=== PATIENT | female | born 1965 | race Caucasian/White ===

== ENCOUNTER 2018-11-24 07:30 | Inpatient (IN) | payer BC ==
[~2018-11-24 07:30] MED LIST: Bupivacaine 0.5%/EPINEPHrine 1:200,000 50 ML MDV ONE; Meropenem 500 MG SDV ONE
[2018-11-24] MEDS ORDERED: Acetaminophen 500 MG Tab PO ONE (08:40)
[2018-11-24] MEDS ORDERED: Scopolamine 1.5 MG Transdermal Patch TOP SCH (08:45)
[2018-11-24] MEDS ORDERED: Dextrose 5%-Lactated Ringers 1,000 ML IV SCH (09:00)
[2018-11-24] MEDS ORDERED: cefOXitin 2 GM in Sodium Chloride 0.9% 50 ML IV ONE (09:30)
[2018-11-24] MEDS ORDERED: Lidocaine 1% PF 2 ML SDV ONE (09:37)
[2018-11-24] MEDS ORDERED: Neostigmine Methylsulfate 1 MG/ML 5 ML Syringe ONE (09:38)
[2018-11-24] MEDS ORDERED: Ondansetron 4 MG/2 ML SDV ONE ×2 (09:38→17:10)
[2018-11-24] MEDS ORDERED: Glycopyrrolate 0.2 MG/ML 5 ML MDV ONE (09:38)
[2018-11-24] MEDS ORDERED: Succinylcholine 200 MG/10 ML MDV ONE (09:38)
[2018-11-24] MEDS ORDERED: Propofol 200 MG/20 ML SDV ONE (09:38)
[2018-11-24] MEDS ORDERED: Dexamethasone 4 MG/ML SDV ONE (09:38)
[2018-11-24] MEDS ORDERED: Rocuronium 50 MG/5 ML Vial ONE ×2 (09:38→12:43)
[2018-11-24] MEDS ORDERED: Ropivacaine 47 ML, Dexamethasone 8 MG, EPINEPHrine 0.4 MG, Sodium Chloride 0.9% 30.6 ML NERVRT SCH ×4 (10:15)
[2018-11-24] MEDS ORDERED: Lactated Ringers 1,000 ML ONE ×2 (13:10→15:29)
[2018-11-24] MEDS ORDERED: fentaNYL 250 MCG/5 ML SDV ONE ×2 (13:40→14:51)
[2018-11-24] MEDS ORDERED: Labetalol 20 MG/4 ML Syringe ONE (13:50)
[2018-11-24] MEDS ORDERED: Meropenem 500 MG SDV ONE ×2 (14:47→15:14)
[2018-11-24] MEDS ORDERED: Sodium Chloride 0.9% 10 ML ONE (15:14)
[2018-11-24] MEDS ORDERED: Mupirocin Oint 22 GM Tube ONE (15:37)
[2018-11-24] MEDS ORDERED: Metoclopramide 10 MG/2 ML SDV IVPUSH PRN (16:57)
[2018-11-24] MEDS ORDERED: Labetalol 20 MG/4 ML Syringe IVPUSH PRN (16:57)
[2018-11-24] MEDS ORDERED: hydrOXYzine HCl 100 MG/2 ML SDV IM PRN (16:57)
[2018-11-24] MEDS ORDERED: Naloxone 0.4 MG/ML SDV IV PRN (16:57)
[2018-11-24] MEDS ORDERED: diphenhydrAMINE 50 MG/ML SDV IVPUSH PRN (16:57)
[2018-11-24] MEDS: Ondansetron 4 MG/2 ML SDV IVPUSH PRN (17:15)
[2018-11-24] MEDS: HYDROmorphone/Normal Saline 15 MG/30 ML PCA IV PRN (17:50)
[2018-11-24] MEDS ORDERED: MVI, Adult with Vitamin K 10 ML, Thiamine 200 MG, Chromium/Copper/Mang/Selen/Zn 1 ML in... IV SCH ×4 (18:00)
[2018-11-24] MEDS: cefOXitin 2 GM in Sodium Chloride 0.9% 50 ML IV SCH (19:51)
[2018-11-24] MEDS: Pantoprazole 40 MG Vial IVPUSH SCH (20:28)
[2018-11-24] MEDS: Metoprolol Tartrate 25 MG Tab PO SCH (20:28)
[2018-11-24] MEDS: Acetaminophen Soln 650 MG/20.3 ML UD Cup PO SCH (21:26)
[2018-11-24] MEDS: Dextrose 5%-Lactated Ringers 1,000 ML IV SCH (23:11)
[2018-11-25] MEDS: cefOXitin 2 GM in Sodium Chloride 0.9% 50 ML IV SCH ×4 (01:54→19:32)
[2018-11-25] MEDS: Acetaminophen Soln 650 MG/20.3 ML UD Cup PO SCH ×4 (03:55→21:20)
[2018-11-25] MEDS ORDERED: Iohexol 647 MG/ML 50 ML SDV IVPUSH PRN (04:43)
[2018-11-25] MEDS: Dextrose 5%-Lactated Ringers 1,000 ML IV SCH (05:27)
[2018-11-25] MEDS ORDERED: Levothyroxine 100 MCG, Levothyroxine 50 MCG, Levothyroxine 25 MCG PO SCH ×3 (07:30)
[2018-11-25] MEDS: Levothyroxine 100 MCG Tab PO SCH (08:04)
[2018-11-25] MEDS: Mupirocin Oint 22 GM Tube TOP SCH ×2 (08:05→21:20)
[2018-11-25] MEDS: Metoprolol Tartrate 25 MG Tab PO SCH ×2 (08:06→21:20)
[2018-11-25] MEDS: SCOPOLAMINE PATCH CHECK TOP SCH (08:07)
[2018-11-25] MEDS: Sodium Ferric Gluconate Cmplex 250 MG in Sodium Chloride 0.9% 100 ML IV SCH (10:14)
[2018-11-25] MEDS: MVI, Adult with Vitamin K 10 ML, Thiamine 200 MG, Chromium/Copper/Mang/Selen/Zn 1 ML in... IV SCH ×4 (15:23)
[2018-11-25] MEDS: Pantoprazole 40 MG Vial IVPUSH SCH (19:33)
[2018-11-26] MEDS: cefOXitin 2 GM in Sodium Chloride 0.9% 50 ML IV SCH (01:34)
[2018-11-26] MEDS: Dextrose 5%-Lactated Ringers 1,000 ML IV SCH (01:34)
[2018-11-26] MEDS: Acetaminophen Soln 650 MG/20.3 ML UD Cup PO SCH ×4 (03:36→22:26)
[2018-11-26] MEDS ORDERED: Cyclobenzaprine 10 MG Tab PO PRN (07:22)
[2018-11-26] MEDS: Levothyroxine 100 MCG Tab PO SCH (07:24)
[2018-11-26] MEDS ORDERED: Cyanocobalamin (Vitamin B12) 1,000 MCG/ML SDV IM ONE (09:00)
[2018-11-26] MEDS: Mupirocin Oint 22 GM Tube TOP SCH ×2 (09:29→20:00)
[2018-11-26] MEDS: SCOPOLAMINE PATCH CHECK TOP SCH (09:30)
[2018-11-26] MEDS: Metoprolol Tartrate 25 MG Tab PO SCH ×2 (09:30→20:00)
[2018-11-26] MEDS: Docusate Sodium 100 MG Cap PO SCH ×2 (09:32→20:00)
[2018-11-26] MEDS: Bisacodyl 5 MG Tab PO SCH ×2 (09:32→20:00)
[2018-11-26] MEDS: Sodium Ferric Gluconate Cmplex 250 MG in Sodium Chloride 0.9% 100 ML IV SCH (11:12)
[2018-11-26] MEDS: Ondansetron 4 MG/2 ML SDV IVPUSH PRN (12:43)
[2018-11-26] MEDS: MVI, Adult with Vitamin K 10 ML, Thiamine 200 MG, Chromium/Copper/Mang/Selen/Zn 1 ML in... IV SCH ×4 (15:10)
[2018-11-26] MEDS: Pantoprazole 40 MG Delayed-Release Granules 1 Packet PO SCH (19:47)
[2018-11-27] MEDS: HYDROmorphone/Normal Saline 15 MG/30 ML PCA IV PRN (01:49)
[2018-11-27] MEDS: Dextrose 5%-Lactated Ringers 1,000 ML IV SCH ×2 (01:53→21:13)
[2018-11-27] MEDS: Acetaminophen Soln 650 MG/20.3 ML UD Cup PO SCH (03:49)
[2018-11-27] MEDS: Levothyroxine 100 MCG Tab PO SCH (07:43)
[2018-11-27] MEDS ORDERED: Ondansetron 4 MG Tab.DIS PO PRN (08:09)
[2018-11-27] MEDS: Docusate Sodium 100 MG Cap PO SCH ×3 (08:26→21:03)
[2018-11-27] MEDS: Mupirocin Oint 22 GM Tube TOP SCH ×2 (08:26→21:03)
[2018-11-27] MEDS: Bisacodyl 5 MG Tab PO SCH ×2 (08:27→21:03)
[2018-11-27] MEDS: Metoprolol Tartrate 25 MG Tab PO SCH ×2 (08:27→21:03)
[2018-11-27] MEDS: Acetaminophen/oxyCODONE 325-5 MG Tab PO PRN ×3 (08:34→19:56)
--- NOTE | 2018-11-27 08:48 | PN ---
DATE OF SERVICE: 11/27/2018 SUBJECTIVE: Raeann is postoperative day 3. She reports her pain is controlled using the CRATE OPENER. She has been up ambulating. She is currently on 3 L of O2. If the O2 is removed, her oxygen will decrease into the low 80s. With 3 L of O2 on, she maintains oximetry saturations by pulse oximetry 89% to 91%. She did have one 94. Significantly decreases with ambulation. Received her last iron infusion yesterday for a low ferritin. Afebrile. Oral intake 1020, urine output is 1300, QUOC 1-4 put out 60, 65, 90 and 80. Oral intake recorded was 550. Oral intake, otherwise, breakfast 40% and dinner 25, lunch was not recorded, has had 2 bowel movements. REVIEW OF SYSTEMS: Remainder of review of systems negative for any pertinent positives and negatives. OBJECTIVE: GENERAL: Raeann Villavicencio is a 53-year-old female. Color pale. She is alert and orientated. VITAL SIGNS: TPR 98.4, 67, 16, blood pressure is 115/67, O2 saturations by pulse oximetry 92% on 3.5 L of O2 per nasal cannula. HEENT: Negative. NECK: Supple. HEART: Regular rate and rhythm. LUNGS: Clear. ABDOMEN: Two QUOC drains are intact, draining a dark red drainage, stapled incision dry, intact. There is no fluid collection above or below the incision. ASSESSMENT: 1. Exploratory laparotomy with lysis of adhesions. a. Small-bowel resection. b. Second degree small bowel anastomosis to re-establish Kiley-en-Y anatomy. c. Separate small bowel stricturoplasty. d. Placement of Interceed mesh. e. Repair of incarcerated incisional hernia. f. Panniculectomy for recurrent incarcerated incisional hernia, extensive adhesions to small bowel with interfusion with inflammatory effusion to abdominal wall, lateral to the jejunostomy, separate small-bowel obstruction and chronic panniculitis. Date of surgery, 11/24/2018. PLAN: 1. Evaluate for home O2. 2. Discontinue CRATE OPENER. 3. Percocet 5/325 mg per protocol one every 4 hours for pain score 4 to 6, give two tablets for pain score greater than 7. Discontinue Tylenol. Teach the patient how to drip drain measure and record QUOC drains each separately. 4. We will evaluate p.r.n. or in a.m. Continue good pulmonary toilet. 5. We will plan discharge in a.m. Mary Contreras PA-C /[id number]
[2018-11-27] MEDS: MVI, Adult with Vitamin K 10 ML, Thiamine 200 MG, Chromium/Copper/Mang/Selen/Zn 1 ML in... IV SCH ×8 (11:20→15:01)
--- NOTE | 2018-11-27 11:48 | OR ---
CORRECTED REPORT DATE OF PROCEDURE: 11/24/2018 PREOPERATIVE DIAGNOSES: 1. Chronic panniculitis. 2. Recurrent incarcerated incisional hernia. POSTOPERATIVE DIAGNOSES: 1. Chronic panniculitis. 2. Recurrent incarcerated incisional hernia. 3. 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 4. Separate small bowel stricture. OPERATIVE PROCEDURE: Exploratory laparotomy with lysis of adhesions and: 1. Small bowel resection (05486). 2. Secondary small bowel anastomosis to reestablish Kiley-en-Y small bowel anatomy (90950). 3. Separate small bowel stricturoplasty (48152). 4. Placement of Interceed mesh (61887). 5. Repair of incarcerated recurrent incisional hernia (91633). 6. Panniculectomy (29166). ANESTHESIA: General. PHOTO MACHINE OPERATOR: TONY Vallecillo. INDICATIONS FOR PROCEDURE: This is a 53-year-old presenting with a large abdominal pannus, status post previous Kiley-en-Y gastric bypass and chronic panniculitis associated with that. She also has recurrent and not entirely reducible incisional hernia located in the central abdomen. Plan is to proceed with repair of that hernia most likely with mesh and concurrent panniculectomy. Potential risks of the procedure including bleeding, infection, injury to underlying viscera, possible need for bowel resection depending on operative findings, as well as the possibility of hernia recurring and the mesh if placed potentially becoming infected were all reviewed with the patient, and she wishes to proceed. DETAILS OF PROCEDURE: The patient was taken to the operating room, and after general endotracheal anesthesia was induced, a Alvarez catheter was inserted and the abdomen was prepped and draped. A broad transversely oriented elliptical incision across the lower abdomen was then marked out and initiated with the initial incision carried only just below the dermis. The lower end of the elliptical incision was then divided with Sonicision device. This was carried down to the level of the fascia for its length. The upper aspect was then similarly divided up to the point overlying the hernia sac, which extended just below the umbilicus, centered in the midline. Once this was done on each side, the hernia sac was opened and eventually excised more or less flush with the fascia. There were extensive adhesions of small bowel into the sac, which were taken down sequentially with a combination of blunt and sharp dissection, aided by electrocautery. A section of the small bowel which had mounted to the area of the jejunojejunostomy was essentially densely fused to a portion of the abdominal wall scar and the portion of that was excised along with the underlying area of the jejunojejunostomy. Once that area was mapped out, the decision was made to proceed with resection of the jejunojejunostomy as this was extremely densely scarred and did not appear to be reasonable to leave in place. At this point, 3 components of the jejunojejunostomy were then divided with NICO staplers as was the underlying mesentery and the specimen delivered from the field was consisted of jejunojejunostomy and some of the adherent overlying abdominal wall scar. The area of dissection was then inspected. GI tract continuity was initially started with an anastomosis to what had been the end of the biliopancreatic limb to the proximal end of the common limb with a [id number] enteroenterostomy with an internal firing of the Endo- NICO 60 mm stapler. The common opening was then closed transversely with purple loads and the angles anastomosed and mesenteric defect approximated with some 0 Ethibond stitch. Kiley- en-Y anatomy was then reconstructed with a [id number] enteroenterostomy between what had been the end of the Kiley limb to the bowel roughly at 15 cm distal to the initial small bowel anastomosis. This was accomplished with an internal firing of the Endo-NICO 60 mm stapler followed by a 30 mm internal firing, the angles anastomosed and mesenteric defect likewise closed with purple loads, and the angles anastomosed and mesenteric defect approximated with some 3-0 Vicryl stitch. At the end of this case, the mesenteric defect was closed with a 2-0 silk stitch to make that defect more permanently secured. The Kiley limb at this point was measured out at around 80 cm and the common limb was measured out at 330 cm, thus giving the patient adequate elementary length at this point. The limb lengths in terms of the Kiley limb and common limb were not significantly changed during the procedure as outlined above. The patient was noted within the biliopancreatic limb to have an area of stricturing related to some previous scar formation. This bowel was flipped over on itself and an enterotomy made and stricturoplasty accomplished with an internal firing of the NICO 60 mm stapler, then the common opening closed with NICO stapler as well. The angles were anastomosed and were reinforced with some 3-0 Vicryl stitch. In this case, there was no mesenteric defect to close. At this point, the area of herniation was then inspected and it was felt that with the extent of the bowel dissection and anastomosis required, a mesh placement would be quite high risk for developing a mesh infection, and given this, we decided to repair this hernia without permanent mesh. The closure of the hernia was done with a transverse orientation with a running #2 Vicryl stitch. Some omentum was tacked down underneath the incision of the anastomosis where it had been reinforced with some fibrin sealant as well. There was still some small bowel that would be up against the abdominal and pelvic fallon, so intercede mesh was placed over those surfaces to displace the small bowel and current adhesion for motion. The abdomen was irrigated with some meropenem-containing saline solution prior to closure. Upon completion of the fascial closure, the patient had 4 Michael-Chase drains placed superior to the main incision, 2 placed on each side, and the panniculectomy closure was then accomplished with 3-0 and 4-0 Vicryl stitch deep and then yared for the skin. Drains were affixed with some 4-0 Vicryl. After initial panniculectomy and excision, bilateral transversus abdominis plane blocks had also been placed, and the patient was taken to the recovery room in satisfactory condition. There were no evident complications. Nghia Chau MD /[id number]
--- NOTE | 2018-11-27 12:33 | CRLCR ---
INDICATION: Evaluate Kiley-en-Y gastric bypass. COMPARISON: None available. FINDINGS: 50 cc of Omnipaque 300 was swallowed. AP supine films of the abdomen are obtained immediately after swelling and with a 15 minutes delay. A total of 4 Michael-Chase drains are seen in the upper pelvis, 2 on the left and 2 on the right. A transverse line of surgical skin yared are seen over the mid pelvis. There is prompt passage of contrast in and out of the small gastric pouch and into the nondilated proximal small bowel. There is prompt passage of the contrast into the mid and distal small bowel at 15 minutes. There is no sign of extravasation of contrast. In the abdomen, there is no sign of distention of the small bowel or colon to suggest obstruction or ileus. There is no sign of free air or distinct mass. The osseous structures are normal in appearance for the patient`s age. The lung bases are clear. IMPRESSION: Prompt passage of swallowed oral contrast into and out of the small gastric pouch. Prompt passage of contrast through the nondilated proximal small bowel. No sign of any extravasation of contrast. Dictated by Faustino Chery MD @ Nov 27 2018 12:29PM Signed by Dr. Faustino Chery @ Nov 27 2018 12:31PM
--- NOTE | 2018-11-27 14:40 | PN ---
DATE OF SERVICE: 11/26/2018 The patient has been afebrile with stable vital signs. Her respiratory status appears to be improving somewhat. She is having some muscle spasm when coughing and as such, we will have her some Flexeril on a p.r.n. basis. I will give her some bowel stimulation, continue the YEAST DISTILLER today. She will be receiving a 2nd iron infusion as she did not have any problems with the iron infusion yesterday. Nghia Chau MD /[id number]
[2018-11-27] MEDS: Pantoprazole 40 MG Delayed-Release Granules 1 Packet PO SCH (19:49)
[2018-11-28] MEDS: Acetaminophen/oxyCODONE 325-5 MG Tab PO PRN ×3 (00:13→09:41)
[2018-11-28] MEDS: Levothyroxine 100 MCG Tab PO SCH (08:18)
[2018-11-28] MEDS: Metoprolol Tartrate 25 MG Tab PO SCH (08:35)
[2018-11-28] MEDS: Bisacodyl 5 MG Tab PO SCH (08:41)
[2018-11-28] MEDS: Docusate Sodium 100 MG Cap PO SCH (08:41)
[2018-11-28 08:45] VITALS: BP 123/79
[2018-11-28] MEDS: Mupirocin Oint 22 GM Tube TOP SCH (09:44)
--- NOTE | 2018-11-28 10:33 | PN ---
DATE OF SERVICE: 11/25/2018 The patient is afebrile with stable vital signs. Kept in ICU yesterday, as she was quite slow to wake up and was required initially 10 L of oxygen by rebreather to maintain adequate oxygenation. She is on nasal cannula this morning and appears to be doing well with O2 saturations in low 90s. She does state that, with her previous operations, she generally has problems with some low oxygen issues initially, and she will be needing to move around quite a bit, as well as work with pulmonary toilet. Otherwise, her upper GI x-ray looks good and will begin a step-2 diet today. We will back down on the IV rate, and the Alvarez catheter will come out. Her TSH was somewhat elevated at 7.5 and, given this, will bump her thyroid dose from 175 mcg to 200 mcg of Synthroid daily, and she will be transferred to second floor today. Nghia Chau MD /[id number]
== END 2018-11-28 09:45 | disposition home or self-care (01) | DRG 223 ==
LOC: EDSTATUS 07:30 → JP.SDS 08:01 → JP.SDSSCHI 08:01 → JP.ICU 17:25 → JP.MS 11-25 13:43
PROVIDERS: ADMIT Surgery; ATTEND Surgery
PROC: 0WQF0ZZ Repair Abdominal Wall, Open Approach (ICD-10-PCS; principal; 2018-11-24)
PROC: 0DBA0ZZ Excision of Jejunum, Open Approach (ICD-10-PCS; 2018-11-24)
PROC: 0DN80ZZ Release Small Intestine, Open Approach (ICD-10-PCS; 2018-11-24)
PROC: 0HB7XZZ Excision of Abdomen Skin, External Approach (ICD-10-PCS; 2018-11-24)
PROC: 0HB7XZZ Excision of Abdomen Skin, External Approach (ICD-10-PCS; 2018-11-24)
PROC: 0D9W00Z Drainage of Peritoneum with Drainage Device, Open Approach (ICD-10-PCS; 2018-11-24)
PROC: 3E0M05Z Introduction of Adhesion Barrier into Peritoneal Cavity, Open Approach (ICD-10-PCS; 2018-11-24)
DX: K43.0 Incisional hernia with obstruction, without gangrene (principal); M79.3 Panniculitis, unspecified; K66.0 Peritoneal adhesions (postprocedural) (postinfection); K91.2 Postsurgical malabsorption, not elsewhere classified; K31.5 Obstruction of duodenum; R09.02 Hypoxemia; I10 Essential (primary) hypertension; E11.9 Type 2 diabetes mellitus without complications; Z98.84 Bariatric surgery status; Z98.0 Intestinal bypass and anastomosis status; E53.8 Deficiency of other specified B group vitamins; E50.9 Vitamin A deficiency, unspecified; E55.9 Vitamin D deficiency, unspecified; E60 Dietary zinc deficiency; E53.9 Vitamin B deficiency, unspecified; E61.0 Copper deficiency; Z68.41 Body mass index [BMI] 40.0-44.9, adult; Z99.81 Dependence on supplemental oxygen; Z86.39 Personal history of other endocrine, nutritional and metabolic disease
CPT/HCPCS: 36415; 74240; 84443; 88302; 88307; 94762; A9270-GY; C9113; J0171; J0330; J0694; J1100; J1170; J2001; J2020; J2185; J2405; J2704; J2710; J2765; J2795; J2916; J3010; J3410; J3411; J3420; J3490; J7030; J7042; J7050; J7120; Q9967